=== PATIENT | female | born 1960 | race Caucasian/White ===

== ENCOUNTER 2024-01-14 13:32 | Outpatient (CLI) | payer BC, SELFPAY ==
--- NOTE | ~2024-01-14 | CT_ITS ---
Non-contrast CT scan of the Abdomen and Pelvis Clinical indication: Abdominal pain Technique: 2.5 mm axial scans were obtained through the abdomen and pelvis without intravenous or or al contrast. Dose reduction technique was used on this scan by utilizing automated exposure control a nd iterative reconstruction technique. The dose-length product (DLP) was 367.95 mGy-cm. Findings: Images through the lung bases reveal no abnormalities. There is no evidence of renal or ureteral calculi. The kidneys and the ureters are nondilated. The liver, spleen, pancreas, gallbladder, and adrenals appear normal. There is no aortic aneurysm. There is no evidence of bowel obstruction. Images through the pelvis were performed. There is no evidence of ascites or lymphadenopathy. Urinary bladder unremarkable. There is a large adnexal mass, measuring approximately 9.5 x 7.9 x 9.8 cm in s ize, with macroscopic fat, coarse calcification, and soft tissue components, most compatible with a l arge adnexal dermoid. Lesion is situated essentially in the midline, anterior to the uterus, unclear which side the lesion is arising from. Impression: 9.5 x 7.9 x 9.8 cm adnexal dermoid in the pelvis, unclear which side the lesion is arising from, as i t is situated in the midline, anterior to the uterus. Reviewed, dictated and finalized at location M. Impression: 9.5 x 7.9 x 9.8 cm adnexal dermoid in the pelvis, unclear which side the lesion is arising from, as it is situated in the midline, anterior to the uterus.
== END 2024-01-14 13:33 | disposition home or self-care (01) ==
LOC: ANHIMG 13:39
PROVIDERS: PCP Family Medicine; Visit Provider Family Medicine
DX: R10.31 Right lower quadrant pain (principal); R19.00 Intra-abdominal and pelvic swelling, mass and lump, unspecified site
CPT/HCPCS: 74176

== ENCOUNTER 2024-01-26 09:02 | Outpatient (CLI) | payer BC, SELFPAY ==
--- NOTE | ~2024-01-26 | MM_ITS ---
EXAMINATION: MM screening fitz BI w luly HISTORY: Screening mammogram TECHNIQUE: Craniocaudal and mediolateral oblique 3-D tomosynthesis images were obtained and synthetic 2-D images were generated. CAD analysis was submitted and interpreted. COMPARISON: 01/15/2019 01/06/2019 BREAST PARENCHYMAL COMPOSITION:Dense: The breasts are heterogeneously dense, which may obscure small masses. FINDINGS: No suspicious mass, calcification, or architectural distortion are identified in either danika ast to suggest malignancy. There has been no suspicious interval change. IMPRESSION: No mammographic evidence of malignancy. Recommend routine screening mammography in one year. BI-RADS Category 1: Negative Reviewed, dictated and finalized at location M.
== END 2024-01-26 09:03 | disposition home or self-care (01) ==
LOC: ANHIMG 09:04
PROVIDERS: PCP Family Medicine; Visit Provider Family Medicine
DX: Z12.31 Encounter for screening mammogram for malignant neoplasm of breast (principal)
CPT/HCPCS: 77063; 77067

== ENCOUNTER 2024-02-11 13:08 | Outpatient (CLI) | payer BC, SELFPAY ==
--- NOTE | 2024-02-11 13:20 | ECG_ITS ---
Test Date: 2024-02-11 13:30:44 Measurements Intervals [place] Rate: 75 P: 45 GA: 157 QRS: -25 QRSD: 86 T: 25 QT: 389 QTc: 436 Interpretive Statements SINUS RHYTHM LOW QRS VOLTAGE IN PRECORDIAL LEADS POOR R WAVE PROGRESSION, CONSIDER ANTERIOR INFARCT BASELINE ARTIFACT- I, II, III, AVR, AVL ,AVF ABNORMAL ECG No previous ECG available for comparison Electronically Signed On 02-11-2024 13:32:19 TANNING SALON ATTENDANT by Prasanna Alfonso D.O.
== END 2024-02-11 13:09 | disposition home or self-care (01) ==
LOC: ANHSURGERY 13:11
PROVIDERS: PCP Family Medicine; Visit Provider Obstetrics & Gynecology Gynecology
DX: I10 Essential (primary) hypertension (principal); Z01.818 Encounter for other preprocedural examination
CPT/HCPCS: 93005

== ENCOUNTER 2024-02-16 13:37 | Inpatient (IN) | payer BC, SELFPAY ==
[2024-02-11 11:08] VITALS: BMI 26.7
--- NOTE | 2024-02-11 11:16 | PC.NURSE ---
Report to the Outpatient Waiting Room, entrance under the green pavilion located off [facility], at time _0800_ on date _[id number]_. Planned Procedure Time: _1000_.? Time changes happen often and if your time is changed the preop area will call you the afternoon before. - You and your visitor will be asked to self-screen and do not enter if you have any COVID symptoms. Please call surgeon if you need to reschedule. - A mask is optional within the hospital at this time. Patients may have clear liquids (water, carbonated beverages, clear teas, apple juice) until 3 hours prior to surgery with a maximum of 20 ounces. - No food from midnight until time of surgery and no smoking Take only the following medications with a SIP of water on the morning of surgery: __Amlodipine and iv needed nose spray DO NOT STOP ANY OF YOUR OTHER PRESCRIPTION MEDICATIONS PRIOR TO SURGERY EXCEPT THE FOLLOWING Medications to discontinue per physician __Vitamins and supplements____ Date to take last [id number]_ Please no make-up, nail lithuanian, hairspray, perfume, deodorant, or body powder the day of surgery.? No jewelry (including any body piercings) or valuables the day of surgery, leave them at home.? Please take a shower or bath the night before, or the morning of, surgery with an antibacterial soap.? Wear comfortable, loose fitting clothing.? - Jewelry must be removed prior to entering the operating room.? Rings and piercings that are not removed may be cut off. - The hospital will not accept responsibility for valuables.? - Please leave all valuables, including medications, at home the day of surgery. If you are going home after surgery, a licensed m48/m60 tank driver must drive you home.? - NO public transportation without another adult if you receive anesthesia. - We recommend that an adult stay with you for 24 hours following discharge. - We also recommend that you do not drive, make important decision, drink alcoholic beverages, or take any drugs that were not prescribed by your health care provider for at least 24 hours after your discharge time. Follow any additional instructions given to you from your surgeon. Telephone instructions given to __Mar__and asked if any additional questions and then verbalized understanding. Patient advised to call surgeon office or pre surgery nurse liaison [phone] if any additional questions.
[2024-02-16] VITALS (10 sets, daily range): BP systolic 91–118; BP diastolic 55–74; PULSE 65–83; RESP 12–18; TEMP 36.4–37.6; O2SAT 98–100
--- NOTE | 2024-02-16 07:31 | WPDHPUPDATE1 ---
History and Physical Update Update Date/Time: 02/16/24 07:31 History and Physical has been reviewed, including an updated exam of the patient. There are NO changes in the patient's condition. Risks, benefits, and alternatives have been discussed and questions answered. Patient agrees to proceed with procedure.
--- NOTE | 2024-02-16 07:32 | PM.HPGS ---
History of Present Illness History of Present Illness Consent: Risks, benefits, and alternatives have been discussed and questions answered. Patient agrees to proceed with procedure. Chief complaint: Post Menopausal Bleeding, Dermoid Cyst Narrative: Mar Alonzo is a 63 year old female with postmenopausal bleeding and a 9cm dermoid cyst. It was recommended to undergo surgical intervention. Plan is to proceed D&C hysteroscopy to evaluate the postmenopausal bleeding. Risks of infection, bleeding, and perforation the uterus are reviewed. Possible pathology was also discussed. In addition the plan is for laparoscopic bilateral salpingo-oophorectomy. Risks of infection, bleeding, and injury to internal organs ( bowel, bladder, ureters, uterus), general anesthesia, and possible pathology are reviewed. Patient voices understanding and agrees to proceed. Review of Systems Review of Systems: not repeated day of surgery; patient states no changes in status PMFSH Past Medical History Medical History (Updated 02/16/24 @ 07:49 by Elif Moreno MD) Chronic rhinitis Essential (primary) hypertension Hepatic steatosis Hypercalcemia Hyperlipidemia, unspecified (normal spontaneous vaginal delivery) x2 Surgical History Surgical History (Updated 02/16/24 @ 07:48 by Elif Moreno MD) H/O unilateral salpingectomy secondary to ectopic 1990 Status post splenectomy Social History Social History Smoking status: Never smoker Second hand tobacco smoke exposure: No Alcohol intake: current Alcohol use details: social Substance use: never Substance use type: does not use Do You Feel Safe in your Home?: Yes Lack of Transportation: No Lack of Food: Never True Current Housing: I Have Housing Concerned About Future Housing: No Difficulty Paying Gas/Electric Bills: No Difficulty Paying for Meds: No Currently Unemployed: No Education: High School Diploma/GED Difficulty w/ Childcare or Family Care: No Living arrangements: with family Occupation/Education: other Gender identity (if verbalized by the patient): Female Sexual Orientation (if Verbalized by the Patient): Straight or Heterosexual Spiritual care concerns: No Meds Home Medications and Allergies Home Medications Medication Instructions Recorded Confirmed Type multivitamin (One Daily 1 tablet PO DAILY 06/27/22 02/11/24 History Multivitamin tablet) omega 6-bci-vpg-fish oil 900 1 cap PO BID 06/27/22 02/11/24 History mg-1,400 mg capsule,delayed release (Fish Oil) fluticasone propionate 50 See Rx Instructions .Route 07/01/23 02/11/24 Rx mcg/actuation nasal .COMPLEX #48 grams spray,suspension rosuvastatin 10 mg tablet 10 mg PO DAILY #90 tabs 07/01/23 02/11/24 Rx amlodipine 10 mg tablet 10 mg PO DAILY #90 tabs 11/23/23 02/11/24 Rx spironolactone 25 1 tablet PO DAILY #90 tabs 11/23/23 02/11/24 Rx mg-hydrochlorothiazide 25 mg tablet latanoprost 0.005 % eye drops 1 drp EACH EYE HS 01/05/24 02/11/24 History Allergies Allergy/AdvReac Type Severity Reaction Status Date / Time No Known Allergies Allergy Mild Verified 02/11/24 11:05 Exam Const: General: healthy appearing and alert Orientation/consciousness: patient oriented x3 Resp: Effort & Inspection: normal respiratory effort Auscultation: clear to auscultation bilaterally Cardio: Rate: regular rate Rhythm: regular rhythm GI: GI Palp: Yes Soft to palpation, No Tenderness to palpation present (GI) and No Palpable mass present Neuro: General: patient oriented x3 Assessment and Plan Assessment and plan (1) Post-menopausal bleeding: Code(s): N95.0 - Postmenopausal bleeding Status: Acute Assessment and Plan: plan to proceed with D&C hysteroscopy (2) Dermoid cyst: Code(s): D36.9 - Benign neoplasm, unspecified site Status: Acute Assessment and Plan: CT scan is unsure which side the cyst is rising from. Plan is to proceed with laparoscopic bilateral salpingo-oophorectomy.
--- NOTE | 2024-02-16 08:22 | WPDANESEPPF ---
Anes - Initial Pre Proc Eval Procedure: Operation Date: 02/16/24 10:00 Proposed Procedures p Hysteroscopy with Dilation and Curettage - Elif Moreno MD s Laparoscopic Bilateral Salpingo-oophorectomy - Elif Moreno MD Date/Time: 02/16/24 08:22 Surgeon: Elif Moreno MD Pre Op Diagnosis: Post Menopausal Bleeding, Dermoid Cyst Patient Data Age: 63 Gender: F Height: 1.57 m Weight: 66.4 kg Allergies Allergy/AdvReac Type Severity Reaction Status Date / Time No Known Allergies Allergy Mild Verified 02/11/24 11:05 Home Medications Medication Instructions Recorded Confirmed Type multivitamin (One Daily 1 tablet PO DAILY 06/27/22 02/11/24 History Multivitamin tablet) omega 3-vhe-wrr-fish oil 900 1 cap PO BID 06/27/22 02/11/24 History mg-1,400 mg capsule,delayed release (Fish Oil) fluticasone propionate 50 See Rx Instructions .Route 07/01/23 02/11/24 Rx mcg/actuation nasal .COMPLEX #48 grams spray,suspension rosuvastatin 10 mg tablet 10 mg PO DAILY #90 tabs 07/01/23 02/11/24 Rx amlodipine 10 mg tablet 10 mg PO DAILY #90 tabs 11/23/23 02/11/24 Rx spironolactone 25 1 tablet PO DAILY #90 tabs 11/23/23 02/11/24 Rx mg-hydrochlorothiazide 25 mg tablet latanoprost 0.005 % eye drops 1 drp EACH EYE HS 01/05/24 02/11/24 History Patient hx anesthesia problems: none Family hx anesthesia problems: none Results Review: All pre-operative results and documents have been reviewed as part of the pre-operative evaluation. [facility]LY [facility] Past Medical History Medical History Chronic rhinitis Essential (primary) hypertension Hepatic steatosis Hypercalcemia Hyperlipidemia, unspecified (normal spontaneous vaginal delivery) x2 Surgical History Surgical History H/O unilateral salpingectomy secondary to ectopic 1991 Status post splenectomy Social History Social History Smoking status: Never smoker Second hand tobacco smoke exposure: No Alcohol intake: current Alcohol use details: social Substance use: never Substance use type: does not use Do You Feel Safe in your Home?: Yes Lack of Transportation: No Lack of Food: Never True Current Housing: I Have Housing Concerned About Future Housing: No Difficulty Paying Gas/Electric Bills: No Difficulty Paying for Meds: No Currently Unemployed: No Education: High School Diploma/GED Difficulty w/ Childcare or Family Care: No Living arrangements: with family Occupation/Education: other Gender identity (if verbalized by the patient): Female Sexual Orientation (if Verbalized by the Patient): Straight or Heterosexual Spiritual care concerns: No Anes - Eval Final PreProcedure Day of Procedure 02/16/24 08:22 Patient weight: overweight Heart: regular rate and rhythm Lungs: clear to auscultation Airway: Mallampati scale class II Neurological: alert and oriented Last oral intake: >/= 8 hours ASA classification: II Emergent: no Anesthetic plan: proceed Anesthesia type and monitoring: general GIVS and standard monitoring Results Review: All pre-operative results and documents have been reviewed as part of the pre-operative evaluation. Informed Consent: The patient's anesthetic plan and its attendant risks and benefits were discussed with the patient/family/POA. Questions were solicited and answers provided to the satisfaction of the patient/family/POA.
[2024-02-16] MEDS: ACETAMINOPHEN 500 MG TABLET 1000 MG PO ×3 (08:30→19:39)
[2024-02-16] MEDS: LACTATED RINGERS 1,000 ML 30 ML IV CONT (08:35)
[2024-02-16] MEDS: KETOROLAC 15 MG/ML VIAL (*BKC) IV PUSH (08:40)
--- NOTE | 2024-02-16 12:12 | W.PM.PROC2 ---
Procedure Note - Detailed Date of Procedure 02/16/24 Pre-op Diagnosis Post Menopausal Bleeding, Dermoid Cyst Post-op Diagnosis Same ( plus adhesions) Procedure Performed D&C hysteroscopy laparoscopy with adhesiolysis exploratory laparotomy with right salpingo oophorectomy and left oophorectomy Surgeon Elif Moreno MD Anesthesia General Findings There is large mass at the cervix. The uterus sounds to 7cm. There is a multiloculated cyst arising from the right adnexa filling the entire visual field greater than 10cm. Adhesions from the bowel to the anterior abdominal wall, from the uterus to the anterior abdominal wall, the multiloculated cyst is adherent to the sidewall and the posterior cul-de-sac and uterus. The left ovary is adherent to the small bowel. Description of Procedure The patient was taken to the operating room and placed under anesthesia in the dorsal lithotomy position. She was prepped and draped in usual sterile fashion. Bladder was drained with a red rubber catheter and bivalve speculum was placed in the vagina. Cervix is grasped on the anterior lip with a tenaculum and a polyp was noted to be prolapsed through the cervix. It was grasped with a ring forceps and removed in a twisting fashion. It was approximately [id number] with a separate [id number] area. Uterus was then sounded to 7cm. The diagnostic hysteroscope was placed with no abnormalities noted it is removed the uterus is sharply curetted until a good uterine cry was noted in all areas minimal material was obtained consistent with the visual appearance. The acorn manipulator was then placed and the speculum removed. Attention was turned to the abdomen where a vertical skin incision was made at the base of the umbilicus. The abdomen was tented and the Veress needle placed. Opening patient pressure of 7mmHg and water drop test is normal. Pneumoperitoneum was obtained to a patient pressure of 15mmHg. A 5mm incision was made in the right lower quadrant and a trocar placed under direct visualization. A 10mm incision was made in the left lower quadrant and the trocar placed. Upon entering the cavity there is some old blood present which is suctioned. The mass is filling the visual field. There are adhesions from the bowel to the anterior abdominal wall that are cauterized and cut using the LigaSure. Using a blunt probe the mass is manipulated to try to identify its blood supply. While bluntly holding the mass to the center the lateral blood supply is identified and cauterized and cut with a LigaSure. The mass is again manipulated using blunt means as there was nothing to grasp all hold of and 1 of the smaller cyst did rupture releasing yellow thicker fluid that was immediately suctioned. Visualization of the posterior portion of the mass reveals it to be very adherent to the cul-de-sac and to the back of the uterus. After attempting to manipulate the scar tissue, the decision was made to perform an exploratory laparotomy. The instruments are removed and the umbilical incision closed using 4-0 nylon in an interrupted fashion. The 2 lower incisions were connected with a single incision using a scalpel. The fascia was nicked in the midline and extended laterally using Goff scissors. [facility] were used to tent the fascia which was then dissected off using sharp and blunt dissection. The rectus muscles were in the midline and the peritoneum tented and entered with Metzenbaum scissors. The peritoneal incision was extended with blunt traction. The bowel was packed away using moist laparotomy sponges. The Balfor is placed. The mass was attempted to be delivered through the incision this is not successful. The posterior wall the mass is not visible. The is using extensive blunt dissection and manually the mass is peeled away from the cul-de-sac and the uterus. The mass was then able to be removed. In order to visualize posteriorly were affectively the uterus was grasped on the cornua with peons. The remnant of the tube on the right is oozing. This is cross clamped with a Z clamp and suture ligated with 0 Vicryl. The cul-de-sac is irrigated and additional area on the right pelvic sidewall is oozing at the peritoneum. This was suture ligated with 0 Vicryl and a [id number] suture. Good hemostasis in this area was then noted. The peons were removed from the cornua and due to the friability of her tissue both areas were slightly bleeding. Both required a [id number] of 0 Vicryl for hemostasis. The left ovary was identified and very small approximately 1cm. There was bowel surrounding and attached to the left tube. The decision was made to leave the tube in place rather than dissect the bowel. The left ovary blood supply was clamped just below the ovary with the Z clamp. The ovary is excised and the pedicle suture ligated with 0 Vicryl. The surface of the uterus and the cul-de-sac appear to be hemostatic. All pedicles and areas that scar tissue were dissected were inspected and noted to be hemostatic. 1L of fluid is used for irrigation. Good hemostasis is noted again. All instruments and the retractor are removed. Sponge, needle, and instrument counts are correct per the OR staff. The fascia was closed using 0 Vicryl in a running fashion. Subcutaneous tissues were irrigated and made hemostatic using Bovie cautery. Skin is closed using 4-0 Vicryl in a subcuticular fashion. Estimated Blood Loss 250 Drains No Packing No Pathology Yes ( Prolapsed cervical mass; endometrial curettings; right tube and ovary and left ovary) Complications Other complications ( exploratory laparotomy) Condition Stable Disposition PACU
[2024-02-16] MEDS: fentaNYL CITRATE INJ (*CRX) 100 MCG/2 ML VIAL 25 MCG IV PUSH ×3 (12:54→13:10)
[2024-02-16] MEDS: DEXTROSE 5%/LACTATED RINGERS 1,000 ML 125 ML IV CONT (14:20)
[2024-02-16] MEDS: KETOROLAC 30 MG/ML VIAL (*BKC) IV PUSH ×2 (14:21→19:38)
[2024-02-16] MEDS: oxyCODONE HCL (*CRX) 5 MG TAB IR PO (16:39)
[2024-02-16] MEDS: SIMETHICONE 80 MG TAB.CHEW PO (16:39)
[2024-02-16] MEDS: DOCUSATE SODIUM 100 MG CAPSULE PO (16:39)
[2024-02-17] MEDS: KETOROLAC 30 MG/ML VIAL (*BKC) IV PUSH (01:12)
[2024-02-17] MEDS: ACETAMINOPHEN 500 MG TABLET 1000 MG PO ×2 (01:13→07:43)
[2024-02-17 04:13] VITALS: BP 107/69; PULSE 77; RESP 18; TEMP 36.5; O2SAT 97
[2024-02-17 04:28] LABS: Hematocrit 29.4 % (37.0-47.0); Mean Corpuscular Hemoglobin 30.4 pg (26-34); Mean Corpuscular Volume 89.4 fl (80-100); Mean Platelet Volume 11.3 fl (7.4-10.4); Platelet Count Result 317 k/mm3 (150-375); Red Blood Count 3.29 M/mm3 (4.2-5.4); White Blood Count 22.2 K/mm3 (4.5-10.0)
[2024-02-17 04:42] LABS: Anion Gap 6 mmol/L (4-12); Blood Urea Nitrogen 8 mg/dL (7-17); Calcium 9.2 mg/dL (8.4-10.2); Carbon Dioxide 26 mmol/L (22-30); Chloride 103 mmol/L (98-107); Estimated CRCL calculation 62 ml/min; Estimated Glomerular Filt Rate > 60; Glucose 113 mg/dL (65-110); Sodium 135 mmol/L (137-145)
[2024-02-17 05:09] LABS: Band Neutrophils Percent 2 % (0-6); Lymphocytes Absolute Manual 2.44 K/mm3 (1.1-4.5); Monocytes Absolute Manual 0.88 K/mm3 (0.1-0.90); Monocytes Percent Manual 4 % (3-9); Neutrophils Absolute Manual 18.87 K/mm3 (1.7-7.2); Neutrophils Percent Manual 83 % (46-73); Total Cells Counted 100
[2024-02-17 05:10] LABS: Platelet Estimate Adequate (Adequate); Schistocytes None Seen
[2024-02-17] MEDS: SIMETHICONE 80 MG TAB.CHEW PO (07:43)
[2024-02-17] MEDS: DOCUSATE SODIUM 100 MG CAPSULE PO (07:43)
[2024-02-17] MEDS: IBUPROFEN 600 MG TABLET PO (07:43)
--- NOTE | 2024-02-17 07:55 | P.PNOB_ITS ---
CRIB TENDER - A/P Postoperative Procedures: Procedures Operation Date: 02/16/24 10:00 Actual Procedure Side Surgeon p Hysteroscopy with Dilation and Curettage Not Applicable Elif Moreno MD s laparoscopy with adhesiolysis, exploratory laparotomy with right salpingo oophorectomy and left oophorectomy Bilateral Elif Moreno MD Postoperative day: 1 Postoperative status: doing well Postoperative plan: routine post-op care, advance diet, discharge (this after noon) and other (reviewed operative findings and need for laparotomy) Time Spent With Patient Time: Total time spent is greater than 50% in coordination of care (as documented) at patient's floor/unit and/or counseling patient: Time with patient: less than 15 minutes CRIB TENDER- PN:Subj Post-Op Subjective Date/time seen: 02/17/24 07:55 Interval history: No nausea. Tolerating liquids and will order regular diet for breakfast. Subjective: patient has no complaints, pain is well controlled and patient is tolerating oral intake Exam Narrative: abdomen soft, nt inc c/d/i CRIB TENDER - PN: Obj Data Vital Signs Vital Signs: Vital Signs - 24 hr 02/16/24 08:09 02/16/24 12:19 02/16/24 12:35 Temperature 97.7 F 97.5 F L Pulse Rate 66 67 65 Respiratory Rate 18 12 12 Blood Pressure 116/74 102/66 102/64 Pulse Oximetry 99 100 100 Oxygen Delivery Room Air Simple Face Mask Simple Face Mask Oxygen Flow Rate 8 8 02/16/24 12:50 02/16/24 13:05 02/16/24 13:20 Temperature 97.8 F Pulse Rate 65 73 68 Respiratory Rate 12 12 12 Blood Pressure 101/66 97/64 L 94/63 L Pulse Oximetry 100 98 98 Oxygen Delivery Simple Face Mask Room Air Room Air Oxygen Flow Rate 8 02/16/24 13:45 02/16/24 16:20 02/16/24 19:44 Temperature 97.7 F 98.5 F 98.4 F Pulse Rate 65 83 83 Respiratory Rate 16 16 18 Blood Pressure 95/58 L 91/65 L 96/55 L Pulse Oximetry 99 98 98 Oxygen Delivery Oxygen Flow Rate 02/16/24 23:34 02/16/24 23:34 02/17/24 04:13 Temperature 99.6 F 97.7 F Pulse Rate 77 77 Respiratory Rate 16 18 Blood Pressure 118/69 107/69 Pulse Oximetry 98 97 Oxygen Delivery Room Air Oxygen Flow Rate Intake/Output Intake/Output: Intake & Output 02/14/24 02/15/24 02/16/24 02/17/24 23:59 23:59 23:59 23:59 Intake Total 680 Output Total 300 Balance 380 Meds/Results Medications: Active Medications Generic Name Dose Route Start Last Admin Trade Name Freq PRN Reason Stop Dose Admin Acetaminophen 1,000 mg 02/16/24 14:30 02/17/24 07:43 Acetaminophen 500 Mg Tablet PO 1,000 mg Q6H ROLDAN Administration Amlodipine Besylate 10 mg 02/17/24 09:00 Amlodipine Besylate 10 Mg Tablet PO DAILY ROLDAN Docusate Sodium 100 mg 02/16/24 17:00 02/17/24 07:43 Docusate Sodium 100 Mg Capsule PO 100 mg BID ROLDAN Administration Fluticasone Propionate 2 spray 02/17/24 09:00 Fluticasone Propionate 0.05% Na Spr 16 Gm Btl (*Bkc) NASAL DAILY ROLDAN Hydrochlorothiazide 25 mg 02/17/24 09:00 Hydrochlorothiazide 25 Mg Tablet PO QAM ROLDAN Dextrose/Lactated Ringer's 1,000 mls @ 125 mls/hr 02/16/24 13:33 02/16/24 14:20 Dextrose 5%/Lactated Ringers IV CONT 125 mls/hr .Q8H ROLDAN Administration Ibuprofen 600 mg 02/17/24 08:30 02/17/24 07:43 Ibuprofen 600 Mg Tablet PO 600 mg Q6H ROLDAN Administration Naloxone HCl 0.1 mg 02/16/24 13:33 Naloxone Hcl 0.4 Mg/Ml Vial IV PUSH Q2M PRN Respiratory rate less than 10 Ondansetron HCl 4 mg 02/16/24 13:33 Ondansetron Inj 4 Mg/2 Ml Vial IV PUSH Q6H PRN Nausea Oxycodone HCl 5 mg 02/16/24 13:33 02/16/24 16:39 Oxycodone Hcl (*Crx) 5 Mg Tab Ir PO 5 mg Q4H PRN Administration Pain Rated 4-6 Oxycodone HCl 10 mg 02/16/24 13:33 Oxycodone Hcl (*Crx) 5 Mg Tab Ir PO Q6H PRN Pain Rated 7-10 Rosuvastatin Calcium 10 mg 02/17/24 09:00 Rosuvastatin 10 Mg Tablet PO DAILY [facility] Simethicone 80 mg 02/16/24 17:00 02/17/24 07:43 Simethicone 80 Mg Tab.Chew PO 80 mg TIDWM [facility] Administration Spironolactone 25 mg 02/17/24 09:00 Spironolactone 25 Mg Tablet PO QAM [facility] Labs 02/17/24 04:10 02/17/24 04:10 Labs: Laboratory Results - last 24 hr 02/17/24 04:10 WBC 22.2 H RBC 3.29 L Hgb 10.0 L Hct 29.4 L MCV 89.4 MCH 30.4 MCHC 34.0 RDW 13.0 Plt Count 317 MPV 11.3 H Immature Gran % (Auto) Not Reportable Neut % (Auto) Not Reportable Lymph % (Auto) Not Reportable [place] % (Auto) Not Reportable Eos % (Auto) Not Reportable Baso % (Auto) Not Reportable Lymph # (Auto) Not Reportable [place] # (Auto) Not Reportable Eos # (Auto) Not Reportable Baso # (Auto) Not Reportable Abs Immat Gran (auto) Not Reportable Absolute Neuts (auto) Not Reportable Absolute Nucleated RBC Not Reportable Total Counted 100 Neutrophils % (Manual) 83 H Band Neutrophils % 2 Lymphocytes % (Manual) 11.0 L Monocytes % (Manual) 4 Nucleated RBC % Not Reportable Abs Neuts (Manual) 18.87 H Abs Lymphs (Manual) 2.44 Abs Monocytes (Manual) 0.88 Platelet Estimate Adequate Schistocytes None seen Sodium 135 L Potassium 4.0 Chloride 103 Carbon Dioxide 26 Anion Gap 6 BUN 8 Creatinine 0.70 Estim Creat Clear Calc 62 Estimated GFR > 60 Glucose 113 H Calcium 9.2
--- NOTE | 2024-02-17 07:57 | PM.DS ---
DS: Admitting Diagnosis Discharge Date 02/17/24 Admitting Diagnosis dermoid cyst postmenopausal bleeding DS: Discharge Diagnosis Discharge Diagnosis (1) S/P exploratory laparotomy: Code(s): Z98.890 - Other specified postprocedural states Status: Acute Assessment and Plan: s/p D&C hysteroscopy, laparoscopy, Bilateral oophorectomy (2) Dermoid cyst: Code(s): D36.9 - Benign neoplasm, unspecified site Status: Acute (3) Post-menopausal bleeding: Code(s): N95.0 - Postmenopausal bleeding Status: Acute DS: Summary Hospital Course Hospital Course: Voiding and ambulating well. Diet advancing and tolerated. Status at Discharge Functional status at discharge: independent ambulation Overall status at discharge: patient is progressing back to baseline Time Spent with Patient Time attestation: Total time spent providing and/or coordinating discharge services: DS: Data Data Completed and Pending Pending studies at discharge: Pending at discharge 02/16/24 10:56 Surgical [PTH] Routine Surgical [PTH] Routine Labs on day of discharge: Labs from last 24 hours 02/17/24 04:10 WBC 22.2 H RBC 3.29 L Hgb 10.0 L Hct 29.4 L MCV 89.4 MCH 30.4 MCHC 34.0 RDW 13.0 Plt Count 317 MPV 11.3 H Immature Gran % (Auto) Not Reportable Neut % (Auto) Not Reportable Lymph % (Auto) Not Reportable [place] % (Auto) Not Reportable Eos % (Auto) Not Reportable Baso % (Auto) Not Reportable Lymph # (Auto) Not Reportable [place] # (Auto) Not Reportable Eos # (Auto) Not Reportable Baso # (Auto) Not Reportable Abs Immat Gran (auto) Not Reportable Absolute Neuts (auto) Not Reportable Absolute Nucleated RBC Not Reportable Total Counted 100 Neutrophils % (Manual) 83 H Band Neutrophils % 2 Lymphocytes % (Manual) 11.0 L Monocytes % (Manual) 4 Nucleated RBC % Not Reportable Abs Neuts (Manual) 18.87 H Abs Lymphs (Manual) 2.44 Abs Monocytes (Manual) 0.88 Platelet Estimate Adequate Schistocytes None seen Sodium 135 L Potassium 4.0 Chloride 103 Carbon Dioxide 26 Anion Gap 6 BUN 8 Creatinine 0.70 Estim Creat Clear Calc 62 Estimated GFR > 60 Glucose 113 H Calcium 9.2 Discharge Plan Discharge Patient Disposition: Home, Self-Care Stand Alone Forms: General Discharge Instructions Follow-up/Referrals: Elif Moreno MD [Physician] - 1 Week Discharge Medications: New oxycodone 5 mg Tablet 5 mg PO Q4H PRN (Reason: Pain Rated 4-6) Qty: 0 0RF oxycodone 5 mg tablet 5 mg PO Q6H PRN (Reason: pain) Qty: 14 0RF No Action rosuvastatin 10 mg tablet 10 mg PO DAILY Qty: 90 1RF Hold Instructions: Patient Condition latanoprost 0.005 % drops 1 drp EACH EYE HS multivitamin [One Daily Multivitamin] Tablet 1 tablet PO DAILY Fish Oil 900-1,400 mg capsule,delayed release(DR/EC) 1 cap PO BID fluticasone propionate 50 mcg/actuation spray,suspension See Rx Instructions .ROUTE .COMPLEX Qty: 48 0RF Dose Instruction: SHAKE LIQUID AND USE 2 SPRAYS IN EACH NOSTRIL DAILY Rx Instructions: SHAKE LIQUID AND USE 2 SPRAYS IN EACH NOSTRIL DAILY spironolacton-hydrochlorothiaz 25-25 mg tablet 1 tablet PO DAILY Qty: 90 1RF amlodipine 10 mg tablet 10 mg PO DAILY Qty: 90 1RF
[2024-02-17 08:00] VITALS: BP 98/59; PULSE 78; RESP 16; TEMP 36.9; O2SAT 100
--- NOTE | 2024-02-17 09:25 | WPDANESPN ---
Anes - Prog Note Post-Op Date/Time: 02/17/24 09:25 Cardiovascular status: normal Respiratory status: normal Airway patency: baseline Mental status: baseline Post-Op hydration status: normal Vital Signs: Last Vital Signs Temp 36.9 C 02/17/24 08:00 Pulse 78 02/17/24 08:00 Resp 16 02/17/24 08:00 BP 98/59 L 02/17/24 08:00 Pulse Ox 100 02/17/24 08:00 O2 Del Method Room Air 02/16/24 23:34 O2 Flow Rate 8 02/16/24 12:50 Pain Score (VAS): 04/09 I/O: Intake & Output 02/16/24 02/17/24 02/17/24 23:59 07:59 15:59 Intake Total 480 Output Total 275 Balance 205 Laboratory Tests 02/17/24 04:10 02/17/24 04:10 02/17/24 04:10 WBC 22.2 H RBC 3.29 L Hgb 10.0 L Hct 29.4 L MCV 89.4 MCH 30.4 MCHC 34.0 RDW 13.0 Plt Count 317 MPV 11.3 H Immature Gran % (Auto) Not Reportable Neut % (Auto) Not Reportable Lymph % (Auto) Not Reportable [place] % (Auto) Not Reportable Eos % (Auto) Not Reportable Baso % (Auto) Not Reportable Lymph # (Auto) Not Reportable [place] # (Auto) Not Reportable Eos # (Auto) Not Reportable Baso # (Auto) Not Reportable Abs Immat Gran (auto) Not Reportable Absolute Neuts (auto) Not Reportable Absolute Nucleated RBC Not Reportable Total Counted 100 Neutrophils % (Manual) 83 H Band Neutrophils % 2 Lymphocytes % (Manual) 11.0 L Monocytes % (Manual) 4 Nucleated RBC % Not Reportable Abs Neuts (Manual) 18.87 H Abs Lymphs (Manual) 2.44 Abs Monocytes (Manual) 0.88 Platelet Estimate Adequate Schistocytes None seen Sodium 135 L Potassium 4.0 Chloride 103 Carbon Dioxide 26 Anion Gap 6 BUN 8 Creatinine 0.70 Estim Creat Clear Calc 62 Estimated GFR > 60 Glucose 113 H Calcium 9.2 Post-procedural complaints: none Patient Feedback: Patient satisfied with anesthetic care.
== END 2024-02-17 10:50 | disposition home or self-care (01) | DRG 743 ==
LOC: ANHOB2 02-17 07:59 → ANHLDR 02-20 12:53
PROVIDERS: Admitting Provider Obstetrics & Gynecology Gynecology; PCP Family Medicine; Visit Provider Obstetrics & Gynecology Gynecology
PROC: 0UDB8ZZ Extraction of Endometrium, Via Natural or Artificial Opening Endoscopic (ICD-10-PCS; CPT 58558; principal; 2024-02-16 10:00)
PROC: 0UDB8ZX Extraction of Endometrium, Via Natural or Artificial Opening Endoscopic, Diagnostic (ICD-10-PCS; CPT 49320; 2024-02-16 10:00)
DX: D28.7 Benign neoplasm of other specified female genital organs (principal); Z53.31 Laparoscopic surgical procedure converted to open procedure; N95.0 Postmenopausal bleeding; N81.2 Incomplete uterovaginal prolapse; N84.0 Polyp of corpus uteri; I10 Essential (primary) hypertension; E78.5 Hyperlipidemia, unspecified
CPT/HCPCS: 58558; 58720; 36415; 80048; 85025; 88305; 88342; A9270; J1100; J1596; J1885; J2003; J2250; J2371; J2405; J2704; J3010; J7120; J7121

== ENCOUNTER 2025-02-23 13:28 | Outpatient (CLI) | payer MEDICARE, SELFPAY ==
--- OUTSIDE RECORDS SUMMARY | 2024-04-08 08:00 | XMS_ITS ---
Author Organization [facility] Address [address] [place] [address] Care Team Providers Care Freight Inspector Name Role Phone Cortes Jo Primary Care Provider Lina Samuel [phone] REASON FOR VISIT Vivitrol Encounters Encounter Location Date Provider Diagnosis [facility] [place] [address] 04/08/2024 Lina Samuel Plan Of Treatment No Information Progress Notes * Janna ALONZOOB:1960 ( 64 yo F)Acc No.[id number]:04/08/2024 UNLOCKED PROGRESS NOTE Patient: Mar FARIAS Provider: CAROL Crawford, AUTOMATIC SPLICING MACHINE OPERATOR, BUSINESS INTELLIGENCE ETL DEVELOPER-C :1960 A ge:63 Y S ex:Female Date:04/08/2024 Address:[address] [place], [place] [id number] Pcp:Cortes Jo Subjective: * Chief Complaints: * 1 . Vivitrol. * Medical History: Objective: * Vitals: Assessment: Plan: * Treatment: * Care Plan Details* * Electronic signature of Dari Samuel APRN, [id number] on 02/23/2025 at 01:38 PM DEPUTY CHIEF MAGISTRATE Sign off status: Pending * Provider: Rufino Samuel, MSN, AUTOMATIC SPLICING MACHINE OPERATOR, BUSINESS INTELLIGENCE ETL DEVELOPER-C Date: 0 04/08/2024 Generated for Alekseyi bernadine/Avelina/eTransmitting on: 1 04/25/2024 01:38 PM DEPUTY CHIEF MAGISTRATE
--- NOTE | ~2025-02-23 | XR_ITS ---
XR foot LT min 3V 02/23/2025 14:00 Indication: Left foot pain Procedure: 4 views left foot Comparison: 07/20/2013 Findings: No fracture, subluxation or dislocation. Lisfranc joint intact. Mild osteoarthritis first MTP joint. Small degenerative calcaneal enthesophytes. No significant soft tissue abnormality. No foreign bodies. Impression: 1: Mild osteoarthritis left first MTP joint. Reviewed, dictated and finalized at location [facility] Impression: 1: Mild osteoarthritis left first MTP joint.
--- OUTSIDE RECORDS SUMMARY | 2025-02-23 13:38 | XMS_ITS | Clinical Summary ---
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 STAND LOADER Gender Identity Not on file Sexual Orientation Not on file Plan of Treatment Health Maintenance Due Date Last Done Comments Hepatitis C Virus (HCV) Screening 1960 Pap Smear 07/30/1980 Cervical Cancer Screening (CCS) 07/30/1989 HPV/Cotest 07/30/1989 Cologuard 07/30/2004 Colonoscopy 07/30/2004 Colorectal Cancer Screening 07/30/2004 Immunochemical Fecal Occult Blood 07/30/2004 Zoster Immunization (1 of 2) 07/30/2009 Pneumococcal Immunization (5 0+ years) (3 of 3 - PCV20 or PCV21) 06/11/2024 06/12/2019, 02/15/2014 Influenza Immunization (#1) 11/29/202411/30, 12/26/2016, 12/31/2013 SARS-COV-2 Immunization ( season) 2024 Respiratory Syncytial Virus (RSV) Immunization (Adult) (1 - 1-dose 75+ series) 07/30/2034 DTaP/Tdap/Td Immunization Discontinued 10/05/2016 TdaP Immunization Completed 10/05/2016 Pneumococcal Immunization Combined Discontinued 06/12/2019, 02/15/2014 Hepatitis B Immunization Aged Out No longer eligible based on patient's age to complete this topic Human Papillomavirus (HPV) Immunization Aged Out No longer eligible based on patient's age to complete this topic Meningococcal Immunization (ACWY) Aged Out No longer eligible based on patient's age to complete this topic Rotavirus Immunization Aged Out No lo nger eligible based on patient's age to complete this topic
--- OUTSIDE RECORDS SUMMARY | 2025-02-23 13:38 | XMS_ITS | Encounter Summary ---
Author Organization [facility] Address [address] [place] [address] Care Team Providers Care Home Economist Name Role Phone Vick Romero MD Primary Care Provider [phone] Encounter Details Date Type Department Care Team (Late st Contact Info) Description 02/18/2024 Lab Requisition [facility] - Pathology Lab [address] [place] [address] Mio Lomas MD [address] [address] Illness, unspecified Social History Tobacco Use Types Packs/Day Years Used Date Smoking Tobacco: Never Assessed Comments Unknown Sex and Gender Information Value Date Recorded Sex Assigned at Not on file Legal Sex Female 4:08 AM CDT Gender Identity Not on file Sexual Orientation Not on file documented as of this encounter Plan of Treatment Scheduled Orders Name Type Priority Associated Diagnoses Orde r Schedule PATHOLOGY TISSUE Pathology Cytology Routine Illness, unspecified Ordered: 02/18/2024 documented as of this encounter Visit Diagnoses Diagnosis Illness, unspecified documented in this encounter Care Teams Home Economist Relationship Specialty Start Date End Date Vick Romero MD [address] [place] [id number] PCP - General 01/27/19 documented as of this encounter
--- OUTSIDE RECORDS SUMMARY | 2025-02-23 13:39 | XMS_ITS | Patient Health Record ---
Author Organization [facility] Address [address] [place] [address] Care Team Providers Care Marine Pilot Name Role Phone Cortes Jo Primary Care Provider Lina Samuel Unavailable [phone] Reason For Referral No Information Immunizations Vaccine Route Administration Date Status Comme nts COVID-19 Moderna 1ST IM Intramuscular 05/04/2020 Administered EUA provided. Screening and consent reviewed and signed. Patient tolerated well. COVID-19 Moderna 2nd IM Intramuscular 06/01/2020 Administered Plan Of Treatment No Information
--- OUTSIDE RECORDS SUMMARY | 2025-02-23 13:39 | XMS_ITS | Clinical Summary ---
Author Organization [facility] Address [address] [place] [address] Care Team Providers Care Synthetic Resin Operator Name Role Phone Vick Romero MD Primary Care Provider [phone] Source Comments [facility],non-owned Affiliates and Associated Physician Practices is amultiple site organization consisting of ambulatory clinics and hospital sitesin [place], [place], [place] and [place]. This disclosure is being madepursuant to the Care Everywhere program and may not contain all information available regarding this patient. Last updated 17.[facility] Allergies No known active allergies Medications * Be aware that medications may not be up to date on this document. Alwaysverify current medications with the patient. amLODIPine (Norvasc) 10 MG tablet Take 1 (one) tablet by mouth once daily 03/09/2024 Active spironolactone- hydroCHLOROthia zide (Aldactazide 25) 25-25 MG tablet Take 1 (one) tablet by mouth once daily 02/25/2024 Active latanoprost (Xalatan) 0.005 % ophthalmic solution Instill 1 (one) drop into both eyes at bedtime 11/05/2023 Active fluticasone propionate (Flonase) 50 MCG/ACT nasal spray Suches 2 (two) sprays into each nostril once daily as needed 07/02/2023 Active Social History Tobacco Use Types Packs/Day Years Used Date Smoking Tobacco: Never Passive Smoke Exposure: Never Smokeless Tobacco: Never Alcohol Use Standard Drinks/Week Comments Yes 0 (1 standard drink = 0.6 oz pur e alcohol) social PHQ-2 Answer Date Recorded Patient Health Questionnaire-2 Score 0 03/11/2024 Comments Unknown Sex and Gender Information Value Date Recorded Sex Assigned at Not on file Legal Sex Female 4:08 AM CDT Gender Identity Not on file Sexual Orientation Not on file Last Filed Vital Signs Vital Sign Reading Time Taken Comments Blood Pressure 122/78 03/11/2024 9:08 AM FEATHER CUTTING MACHINE FEEDER Pulse - - Temperature - - Respiratory Rate - - Oxygen Saturation - - Inhaled Oxygen Concentration - - Weight 64.4 kg (142 lb) 03/22/2024 10:26 AM FEATHER CUTTING MACHINE FEEDER Height 157.5 cm (5' 2) 03/11/2024 9:08 AM FEATHER CUTTING MACHINE FEEDER Body Mass Index 25.97 03/11/2024 9:08 AM FEATHER CUTTING MACHINE FEEDER Plan of Treatment Health Maintenance Due Date Last Done Comments BONE DENSITY TESTING 1960 COLON MONITORING 1960 COLONOSCOPY - COLON CA SCREENING 1960 CT COLONOGRAPHY - COLON CA SCREENING 1960 FIT - COLON CA SCREENING 1960 FLEX SIG - COLON CA SCREENING 1960 LIPID TESTING 1960 MAMMOGRAM 1960 HIB VACCINE (1 of 1 - Risk 1-dose series) 10/30/1960 MENINGOCOCCAL GROUPS A/C/Y/W VACCINE (1 - Risk 2-dose series) 07/30/1961 MENINGOCOCCAL (Group B) VACCINE SHARED DECISION-MAKING (1 of 4 - Increased Risk) 07/30/1969 HIV SCREENING 07/30/1974 HEPATITIS C SCREENING 07/26/1977 DTAP/TDAP/TD VACCINES (1 - Tdap) 07/30/1978 PNEUMOCOCCAL VACCINE 50+ (1 of 2 - PCV) 07/30/1978 Cervical Cancer Screening 07/30/1980 PAP SMEAR 07/30/1980 PAP with HPV 07/30/1989 ZOSTER VACCINE (1 of 2) 07/30/2009 SCREENING FOR DIABETES 03/11/2024 DEPRESSION SCREENING 03/31/2024 03/11/2024 COVID-19 VACCINE ( season) 2024 01/04/2022, 03/13/2021, 06/01/2020, Additional history exists INFLUENZA VACCINE (#1) 2024 , 04/30/2023, 01/04/2022, Additional history exists COLOGUARD (AGES 45-75) - COLON CA SCREENING 07/17/2025 07/17/2022 Colorectal Cancer Screening 07/17/2025 Respiratory Syncytial Virus (RSV) Vaccine Pt: or over 60 yrs (1 - 1-dose 75+ series) 07/30/2034 HEPATITIS B VACCINE Aged Out No longe r eligible based on patient's age to complete this topic HPV VACCINE Aged Out No longer eligi ble based on patient's age to complete this topic Insurance ANTHEM ANTHEM Care Teams Synthetic Resin Operator Relationship Specialty Start Date End Date Vick Romero MD [address] [place] [address] [place] [address] PCP - General 01/27/19
== END 2025-02-23 13:29 | disposition home or self-care (01) ==
PROVIDERS: PCP Family Medicine
DX: M19.072 Primary osteoarthritis, left ankle and foot (principal)
CPT/HCPCS: 73630